=== PATIENT | male | born 1960 | race Caucasian/White ===

== ENCOUNTER 2023-02-10 10:33 | Inpatient (IN) | payer MEDICAID, OTHER ==
[~2023-02-10] VITALS: Ht 172.7 cm; Wt 86.3 kg
[~2023-02-10 10:33] MED LIST: NORPTMEDS CO
[2023-02-10] MEDS ORDERED: cloNIDine HCL 0.1 MG TAB PO ONE (11:00)
[2023-02-10 11:15] LABS: Base Excess 7.4 mmol/L (-2.0-2.0)
[2023-02-10 11:27] VITALS: PULSE 91; RESP 28; O2SAT 91
[2023-02-10 11:41] LABS: Basophils # (auto) 0.1 10 ^3/uL (0-0.2); Basophils % (auto) 0.6 % (0.0-2.0); Eosinophils # (auto) 0.3 10 ^3/uL (0-0.8); Hematocrit 43.8 % (41.0-53.0); Lymphocytes # (auto) 1.2 10 ^3/uL (0.4-5.4); Lymphocytes % (auto) 8.5 % (10.0-50.0); Mean Corpuscular Hemoglobin 27.8 pg (28.0-32.0); Mean Corpuscular Volume 86.8 fL (80.0-100.0); Monocytes # (auto) 1.1 10 ^3/uL (0-1.3); Monocytes % (auto) 7.5 % (0.0-12.0); Neutrophils # (auto) 11.4 10 ^3/uL (1.6-8.6); Neutrophils % (auto) 81.4 % (37.0-80.0); Red Blood Cells 5.04 10^6/uL (4.5-5.90); Red Cell Distribution Width 15.1 % (11.8-14.3)
[2023-02-10 12:02] LABS: Potassium 4.1 mmol/L (3.5-5.1)
[2023-02-10 12:10] LABS: Albumin 3.3 g/dL (3.4-5.0); Bilirubin, Total 0.3 mg/dL (0.2-1.0); Calcium 8.9 mg/dL (8.5-10.1); Magnesium 2.8 mg/dL (1.6-2.6); Total Protein 7.1 g/dL (6.4-8.2)
[2023-02-10] MEDS ORDERED: FUROSEMIDE 40 MG/4 ML VIAL IV ONE (12:45)
[2023-02-10 12:49] LABS: COVID19 ANTIGEN SOFIA FIA NEGATIVE (NEGATIVE)
[2023-02-10] MEDS ORDERED: PIPERACILLIN-TAZOB 3.375GM 100 ML IV ONE (13:15)
[2023-02-10] MEDS ORDERED: hydrALAZINE HCL 20 MG/ML VL IV ONE (13:45)
[2023-02-10 14:03] LABS: INR 1.04 (0.9-1.15); Partial Thromboplastin Time 29.6 SEC (24.5-34.5); Prothrombin Time 10.9 sec (9.3-11.8)
[2023-02-10] MEDS ORDERED: HEPARIN DRIP/D5W 100UNITS/ML 250 ML IV SCH (14:30)
[2023-02-10] MEDS ORDERED: MORPHINE SULFATE INJ 2 MG/ml SYRG IV PRN (14:30)
[2023-02-10] MEDS ORDERED: ONDANSETRON HCL 4 MG/2 ML VIAL IV PRN (14:30)
[2023-02-10] MEDS ORDERED: FUROSEMIDE 20 MG/2 ML VIAL IV ONE (14:30)
[2023-02-10] MEDS ORDERED: DOCUSATE SOD 100 MG CAP PO PRN (14:30)
[2023-02-10] MEDS ORDERED: HEPARIN SODIUM (PORCINE) 5000 UNITS/ML 1ML VIAL IV ONE (14:30)
[2023-02-10 14:49] LABS: Urine Bacteria NONE SEEN /hpf (None Seen); Urine Blood Negative /uL (Negative); Urine Clarity Clear (Clear); Urine Color Yellow (Yellow); Urine Protein, UAD 1+ (Negative); Urine Specific Gravity 1.016 (1.001-1.035); Urine Urobilinogen Normal (Negative); Urine WBC <1 /hpf (0 - 3); Urine pH 5.5 (5.0-8.0)
[2023-02-10] MEDS: FUROSEMIDE 40 MG/4 ML VIAL IV SCH (18:01)
[2023-02-10 19:26] LABS: Base Excess 12.5 mmol/L (-2.0-2.0)
[2023-02-10 19:40] VITALS: PULSE 113; RESP 18; O2SAT 93
[2023-02-10 19:50] LABS: Amphetamine Screen, Urine POSITIVE (NEGATIVE); Barbiturate Scree,Urine NEGATIVE (NEGATIVE); Benzodiazephine Screen, Urine NEGATIVE (NEGATIVE); Cannabinoid Screen, Urine NEGATIVE (NEGATIVE); Cocaine Screen, Urine NEGATIVE (NEGATIVE); Opiate Scree,Urine NEGATIVE (NEGATIVE)
[2023-02-10 19:58] LABS: Phencyclidine Screen, Urine NEGATIVE (NEGATIVE)
[2023-02-10 20:02] LABS: Hematocrit 46.4 % (41.0-53.0)
[2023-02-10] MEDS: PIPERACILLIN-TAZOB 3.375GM 100 ML IV SCH (20:12)
[2023-02-10 20:26] LABS: Albumin 3.3 g/dL (3.4-5.0); Basophils # (auto) 0 10 ^3/uL (0-0.2); Basophils % (auto) 0.2 % (0.0-2.0); Calcium 8.7 mg/dL (8.5-10.1); Eosinophils # (auto) 0.1 10 ^3/uL (0-0.8); Eosinophils % (auto) 0.8 % (0.0-7.0); Hemoglobin 15.1 g/dL (13.5-17.5); Lymphocytes # (auto) 0.9 10 ^3/uL (0.4-5.4); Lymphocytes % (auto) 6.4 % (10.0-50.0); Mean Corpuscular Hemoglobin 28.1 pg (28.0-32.0); Mean Corpuscular Hgb Conc. 32.1 g/dL (32.0-36.0); Mean Corpuscular Volume 87.6 fL (80.0-100.0); Monocytes # (auto) 1.2 10 ^3/uL (0-1.3); Monocytes % (auto) 8.4 % (0.0-12.0); Neutrophils # (auto) 11.8 10 ^3/uL (1.6-8.6); Neutrophils % (auto) 84.2 % (37.0-80.0); Potassium 4.1 mmol/L (3.5-5.1); Red Blood Cells 5.37 10^6/uL (4.5-5.90); Red Cell Distribution Width 15.4 % (11.8-14.3)
[2023-02-10 20:30] LABS: BUN/Creatinine Ratio 15.6 (10.0-20.0); Bilirubin, Total 0.2 mg/dL (0.2-1.0)
[2023-02-10 20:35] LABS: INR 1.07 (0.9-1.15); Partial Thromboplastin Time 28.8 SEC (24.5-34.5); Prothrombin Time 11.2 sec (9.3-11.8)
[2023-02-10 20:49] VITALS: PULSE 107; O2SAT 95
[2023-02-10 21:17] LABS: Body Fluid pH 9
[2023-02-10 21:18] LABS: Body Fluid Polymorphonuclear 15 % (0-25); Body Fluid Red Blood Cells 30000 CUMM (0-2000); Body Fluid White Blood Cells 225 CUMM (0-200)
[2023-02-10 21:32] VITALS: PULSE 107; O2SAT 95
[2023-02-10 22:15] VITALS: PULSE 103; O2SAT 93
[2023-02-10 22:37] LABS: Base Excess 11.4 mmol/L (-2.0-2.0)
[2023-02-11] VITALS (9 sets, daily range): BP systolic 101–135; BP diastolic 53–85; PULSE 81–107; RESP 19–22; TEMP 97.7; O2SAT 94–98
[2023-02-11] MEDS: PIPERACILLIN-TAZOB 3.375GM 100 ML IV SCH ×4 (02:30→21:09)
[2023-02-11 05:34] LABS: Basophils # (auto) 0 10 ^3/uL (0-0.2); Basophils % (auto) 0.2 % (0.0-2.0); Eosinophils # (auto) 0.1 10 ^3/uL (0-0.8); Eosinophils % (auto) 1.2 % (0.0-7.0); Hematocrit 40.3 % (41.0-53.0); Hemoglobin 13.5 g/dL (13.5-17.5); Lymphocytes # (auto) 1.2 10 ^3/uL (0.4-5.4); Lymphocytes % (auto) 9.9 % (10.0-50.0); Mean Corpuscular Hemoglobin 28.9 pg (28.0-32.0); Mean Corpuscular Hgb Conc. 33.5 g/dL (32.0-36.0); Mean Corpuscular Volume 86.2 fL (80.0-100.0); Monocytes # (auto) 1.1 10 ^3/uL (0-1.3); Monocytes % (auto) 9.1 % (0.0-12.0); Neutrophils # (auto) 9.9 10 ^3/uL (1.6-8.6); Neutrophils % (auto) 79.6 % (37.0-80.0); Red Blood Cells 4.67 10^6/uL (4.5-5.90); Red Cell Distribution Width 15.6 % (11.8-14.3); White Blood Cell 12.4 10^3/uL (4.4-10.8)
[2023-02-11 06:05] LABS: Potassium 3.7 mmol/L (3.5-5.1)
[2023-02-11 06:13] LABS: Albumin 2.9 g/dL (3.4-5.0); BUN/Creatinine Ratio 22.2 (10.0-20.0); Bilirubin, Total 0.3 mg/dL (0.2-1.0); Calcium 8.2 mg/dL (8.5-10.1)
[2023-02-11] MEDS: FUROSEMIDE 40 MG/4 ML VIAL IV SCH ×2 (06:17→18:56)
[2023-02-11 08:19] LABS: Base Excess 13.7 mmol/L (-2.0-2.0)
[2023-02-11 16:00] LABS: Cholesterol 213 mg/dL (< 200); Triglycerides 190 mg/dL (< 150)
[2023-02-11 16:03] LABS: HDL Cholesterol 45 mg/dL (40-59); LDL Cholesterol 149 mg/dL (< 100)
[2023-02-12] VITALS (9 sets, daily range): BP systolic 130–165; BP diastolic 80–107; PULSE 86–112; RESP 16–20; TEMP 97.7–98.6; O2SAT 92–95
[2023-02-12] MEDS: PIPERACILLIN-TAZOB 3.375GM 100 ML IV SCH ×4 (02:16→20:46)
[2023-02-12] MEDS ORDERED: LOSA50TA46 PO (04:14)
[2023-02-12] MEDS ORDERED: ATOR40TA52 PO (04:14)
[2023-02-12] MEDS ORDERED: [UNRECOGNIZED DRUG - CODE] PO (04:14)
[2023-02-12] MEDS: FUROSEMIDE 40 MG/4 ML VIAL IV SCH ×2 (05:25→17:40)
[2023-02-12] MEDS ORDERED: [UNRECOGNIZED DRUG - OTHER] PO SCH (18:00)
[2023-02-13] VITALS (10 sets, daily range): BP systolic 131–154; BP diastolic 82–94; PULSE 96–109; RESP 18–20; TEMP 97.5–98.3; O2SAT 91–95
[2023-02-13] MEDS: PIPERACILLIN-TAZOB 3.375GM 100 ML IV SCH ×4 (01:52→20:51)
[2023-02-13 02:54] LABS: Base Excess 14.8 mmol/L (-2.0-2.0)
[2023-02-13] MEDS: LOSARTAN POTASSIUM 50 MG TAB PO SCH (03:09)
[2023-02-13] MEDS: FUROSEMIDE 40 MG/4 ML VIAL IV SCH ×2 (06:35→18:39)
[2023-02-13 06:36] LABS: Basophils # (auto) 0.1 10 ^3/uL (0-0.2); Basophils % (auto) 0.6 % (0.0-2.0); Eosinophils # (auto) 0.5 10 ^3/uL (0-0.8); Eosinophils % (auto) 3.9 % (0.0-7.0); Hematocrit 43.1 % (41.0-53.0); Lymphocytes # (auto) 1.8 10 ^3/uL (0.4-5.4); Lymphocytes % (auto) 12.7 % (10.0-50.0); Mean Corpuscular Hgb Conc. 32.3 g/dL (32.0-36.0); Mean Corpuscular Volume 86.6 fL (80.0-100.0); Monocytes # (auto) 1.3 10 ^3/uL (0-1.3); Monocytes % (auto) 9.2 % (0.0-12.0); Neutrophils # (auto) 10.2 10 ^3/uL (1.6-8.6); Neutrophils % (auto) 73.6 % (37.0-80.0); Nucleated Red Blood Cells % 0.1 %; Red Blood Cells 4.98 10^6/uL (4.5-5.90); Red Cell Distribution Width 15.3 % (11.8-14.3); White Blood Cell 13.8 10^3/uL (4.4-10.8)
[2023-02-13 06:56] LABS: Potassium 3.4 mmol/L (3.5-5.1)
[2023-02-13 07:03] LABS: Albumin 2.9 g/dL (3.4-5.0); BUN/Creatinine Ratio 17.4 (10.0-20.0); Bilirubin, Total 0.3 mg/dL (0.2-1.0); Calcium 8.2 mg/dL (8.5-10.1); Total Protein 7.6 g/dL (6.4-8.2)
[2023-02-13] MEDS ORDERED: ATORVASTATIN 20 MG TAB PO SCH ×2 (07:30→22:00)
[2023-02-13] MEDS ORDERED: POTASSIUM CHL 20 Meq TABLET PO ONE (08:45)
[2023-02-13] MEDS ORDERED: LOSARTAN POTASSIUM 50 MG TAB PO SCH (10:00)
[2023-02-13 10:34] LABS: Base Excess 15.2 mmol/L (-2.0-2.0)
[2023-02-13] MEDS: amLODIPine BESYLATE 5 MG TAB PO SCH (12:35)
[2023-02-13] MEDS: [UNRECOGNIZED DRUG - OTHER] PO SCH (18:40)
[2023-02-14] VITALS (9 sets, daily range): BP systolic 133–153; BP diastolic 84–99; PULSE 79–109; RESP 16–22; TEMP 98–98.5; O2SAT 90–98
[2023-02-14] MEDS: PIPERACILLIN-TAZOB 3.375GM 100 ML IV SCH ×2 (02:09→08:28)
[2023-02-14] MEDS: FUROSEMIDE 40 MG/4 ML VIAL IV SCH ×2 (05:27→18:00)
[2023-02-14] MEDS: LOSARTAN POTASSIUM 50 MG TAB PO SCH (08:28)
[2023-02-14] MEDS: amLODIPine BESYLATE 5 MG TAB PO SCH (08:29)
[2023-02-14 09:16] LABS: Potassium 3.7 mmol/L (3.5-5.1)
[2023-02-14 09:35] LABS: BUN/Creatinine Ratio 14.4 (10.0-20.0); Calcium 8.4 mg/dL (8.7-10.4)
[2023-02-14] MEDS ORDERED: AML5T PO (10:07)
[2023-02-14] MEDS ORDERED: FURO1TAB33 PO (10:07)
[2023-02-14] MEDS ORDERED: DEXTROSE (50%) 50ML SYRG IV PRN (10:15)
[2023-02-14] MEDS: InsuLIN REG 1unit/0.01ml Soln (100units/ml) SC SCH ×2 (11:21→16:19)
[2023-02-14] MEDS: ACCU-CHEK COMFORT CURVE STRIP VI SCH ×2 (11:23→16:19)
[2023-02-14 12:06] LABS: Protein, Body Fluid 3.2 g/dL (.)
[2023-02-14] MEDS ORDERED: METF-370 PO (15:55)
[2023-02-14] MEDS ORDERED: PIPERACILLIN-TAZOB 3.375GM 100 ML IV SCH (16:00)
[2023-02-14] MEDS: [UNRECOGNIZED DRUG - OTHER] PO SCH (18:00)
== END 2023-02-14 19:25 | disposition home or self-care (01) | DRG 133 ==
LOC: ER 10:33 → OVERFLOW 14:18 → TELE-CENTR 02-11 18:07
PROVIDERS: ADMIT Internal Medicine Pulmonary Disease
PROC: 5A09357 Assistance with Respiratory Ventilation, Less than 24 Consecutive Hours, Continuous Positive Airway Pressure (ICD-10-PCS; principal; 2023-02-10)
PROC: 0W9B3ZZ Drainage of Left Pleural Cavity, Percutaneous Approach (ICD-10-PCS; 2023-02-10)
PROC: 5A09357 Assistance with Respiratory Ventilation, Less than 24 Consecutive Hours, Continuous Positive Airway Pressure (ICD-10-PCS; 2023-02-13)
DX: J96.21 Acute and chronic respiratory failure with hypoxia (principal); I30.9 Acute pericarditis, unspecified; E87.4 Mixed disorder of acid-base balance; J91.8 Pleural effusion in other conditions classified elsewhere; E78.5 Hyperlipidemia, unspecified; I16.1 Hypertensive emergency; F15.19 Other stimulant abuse with unspecified stimulant-induced disorder; Z20.822 Contact with and (suspected) exposure to COVID-19; I11.0 Hypertensive heart disease with heart failure; I50.9 Heart failure, unspecified; G47.31 Primary central sleep apnea; Z92.21 Personal history of antineoplastic chemotherapy; C34.90 Malignant neoplasm of unspecified part of unspecified bronchus or lung
CPT/HCPCS: 36415; 36600; 71045; 71250; 76604; 76942; 80048; 80053; 80061; 80307; 81001; 82805; 82962; 83036; 83605; 83735; 83880; 83986; 84484; 85014; 85018; 85025; 85610; 85730; 86850; 86900; 86901; 87040; 87205; 87426; 89051; 93005; 93306; 94660; 96365; 96366; 96375; 99291; G0378; J1815; J2543

== ENCOUNTER 2023-05-12 17:32 | Inpatient (IN) | payer MEDICAID ==
[~2023-05-12] VITALS: Ht 170.2 cm; Wt 79.4 kg
[~2023-05-12 17:32] MED LIST changes: +AML5T PO; +ATOR40TA52 PO; +FURO1TAB33 PO; +LOSA50TA46 PO; +METF-370 PO; -NORPTMEDS CO; +[UNRECOGNIZED DRUG - CODE] PO
[2023-05-12 18:15] VITALS: PULSE 106; RESP 19; O2SAT 94
[2023-05-12] MEDS ORDERED: SODIUM CHLORIDE 0.9% 1,000 ML IV ONE ×2 (18:30→19:30)
[2023-05-12] MEDS ORDERED: PIPERACILLIN-TAZO 4.5GM 100 ML IV ONE (18:30)
[2023-05-12] MEDS ORDERED: VANCOMYCIN 1GM/250ML 250 ML IV ONE (18:30)
[2023-05-12] MEDS ORDERED: FUROSEMIDE 40 MG/4 ML VIAL IV ONE (18:45)
[2023-05-12 18:50] LABS: Base Excess 2.8 mmol/L (-2.0-2.0)
[2023-05-12 18:57] LABS: Eosinophils # (auto) 0.4 10 ^3/uL (0-0.8); Lymphocytes % (auto) 11.8 % (10.0-50.0)
[2023-05-12 18:58] LABS: Basophils # (auto) 0 10 ^3/uL (0-0.2); Basophils % (auto) 0.4 % (0.0-2.0); Eosinophils % (auto) 4.2 % (0.0-7.0); Hematocrit 39.7 % (41.0-53.0); Hemoglobin 12.8 g/dL (13.5-17.5); Lymphocytes # (auto) 1.2 10 ^3/uL (0.4-5.4); Mean Corpuscular Hemoglobin 27.3 pg (28.0-32.0); Mean Corpuscular Hgb Conc. 32.2 g/dL (32.0-36.0); Monocytes # (auto) 0.8 10 ^3/uL (0-1.3); Neutrophils % (auto) 75.6 % (37.0-80.0); Red Blood Cells 4.67 10^6/uL (4.5-5.90); Red Cell Distribution Width 15.9 % (11.8-14.3); White Blood Cell 10.5 10^3/uL (4.4-10.8)
[2023-05-12 19:10] LABS: INR 1.09 (0.9-1.15); Prothrombin Time 11.4 sec (9.3-11.8)
[2023-05-12 19:16] LABS: Alanine Aminotransferase 11 U/L (7-40); Albumin 4.3 g/dL (3.2-4.8); Alkaline Phosphatase 71 U/L (46-116); Anion Gap 6 (5-15); Aspartate Aminotransferase 12 U/L (13-40); BUN/Creatinine Ratio 17.2 (10.0-20.0); Bilirubin, Total 0.2 mg/dL (0.2-1.0); Blood Urea Nitrogen 15 mg/dL (9-23); Carbon Dioxide 32 mmol/L (20-30); Chloride 106 mmol/L (98-107); Glucose 151 mg/dL (74-106); Potassium 3.7 mmol/L (3.5-5.1); Sodium 144 mmol/L (136-145); Total Protein 7.3 g/dL (5.7-8.2)
[2023-05-12 19:30] VITALS: PULSE 108; RESP 22; O2SAT 94
[2023-05-12] MEDS ORDERED: CIPROFLOXACIN 400MG/200ML 200 ML IV ONE (19:30)
[2023-05-12] MEDS ORDERED: ASPirin-EC 81 mg tab PO ONE (20:15)
[2023-05-12] MEDS ORDERED: NITROGLYCERIN 2% OINT 1GM PKG TD ONE (20:15)
[2023-05-12] MEDS ORDERED: METOPROLOL TARTRATE 1MG/1ML-5ML VIAL IV ONE (21:45)
[2023-05-12] MEDS ORDERED: ONDANSETRON HCL 4 MG/2 ML VIAL IV PRN (22:15)
[2023-05-12] MEDS ORDERED: DEXTROSE (50%) 50ML SYRG IV PRN (22:15)
[2023-05-12] MEDS ORDERED: hydrALAZINE HCL 20 MG/ML VL IV PRN (22:15)
[2023-05-12] MEDS ORDERED: HYDROcodone-ACET 5/325MG TAB PO PRN (22:15)
[2023-05-12] MEDS ORDERED: ACETAMINOPHEN 325 MG TAB PO PRN (22:15)
[2023-05-12] MEDS ORDERED: DOCUSATE SOD 100 MG CAP PO PRN (22:15)
[2023-05-12] MEDS ORDERED: NITROGLYCERIN 0.4 MG SL TAB SL PRN (23:30)
[2023-05-12] MEDS ORDERED: MORPHINE SULFATE INJ 2 MG/ml SYRG IV PRN (23:30)
[2023-05-13] MEDS ORDERED: MORPHINE SULFATE INJ 2 MG/ml SYRG IV PRN (05:00)
[2023-05-13] MEDS ORDERED: SODIUM CHLOR 0.9% PF (SALINE LOCK) 10ML VIAL/SYR IV SCH (06:00)
[2023-05-13 06:36] LABS: Basophils # (auto) 0.1 10 ^3/uL (0-0.2); Basophils % (auto) 0.5 % (0.0-2.0); Eosinophils # (auto) 0.5 10 ^3/uL (0-0.8); Eosinophils % (auto) 3.7 % (0.0-7.0); Hematocrit 39.7 % (41.0-53.0); Hemoglobin 12.9 g/dL (13.5-17.5); Lymphocytes # (auto) 1.7 10 ^3/uL (0.4-5.4); Lymphocytes % (auto) 13.4 % (10.0-50.0); Mean Corpuscular Hemoglobin 27.5 pg (28.0-32.0); Mean Corpuscular Hgb Conc. 32.4 g/dL (32.0-36.0); Mean Corpuscular Volume 84.6 fL (80.0-100.0); Monocytes # (auto) 1.3 10 ^3/uL (0-1.3); Neutrophils # (auto) 9.3 10 ^3/uL (1.6-8.6); Neutrophils % (auto) 72.4 % (37.0-80.0); Red Blood Cells 4.69 10^6/uL (4.5-5.90); Red Cell Distribution Width 16.2 % (11.8-14.3); White Blood Cell 12.9 10^3/uL (4.4-10.8)
[2023-05-13] MEDS ORDERED: InsuLIN REG 1unit/0.01ml Soln (100units/ml) SC SCH ×2 (07:00→22:00)
[2023-05-13] MEDS ORDERED: ACCU-CHEK COMFORT CURVE STRIP VI SCH (07:00)
[2023-05-13 07:09] LABS: Alanine Aminotransferase 13 U/L (7-40); Anion Gap 7 (5-15); Calcium 8.9 mg/dL (8.5-10.1); Carbon Dioxide 32 mmol/L (20-30); Chloride 104 mmol/L (98-107); Glucose 128 mg/dL (74-106); Potassium 3.8 mmol/L (3.5-5.1); Sodium 143 mmol/L (136-145)
[2023-05-13 07:10] LABS: Aspartate Aminotransferase 11 U/L (13-40); Blood Urea Nitrogen 17 mg/dL (9-23)
[2023-05-13 07:11] LABS: Albumin 4.4 g/dL (3.2-4.8)
[2023-05-13 07:12] LABS: Bilirubin, Total 0.2 mg/dL (0.2-1.0); Total Protein 7.3 g/dL (5.7-8.2)
[2023-05-13 07:35] VITALS: PULSE 106; RESP 26; O2SAT 93
[2023-05-13 07:57] VITALS: BP 141/95; RESP 26; TEMP 97.2; O2SAT 93
[2023-05-13 08:00] VITALS: PULSE 103
[2023-05-13] MEDS ORDERED: ASPirin 81 mg TAB PO SCH (10:00)
[2023-05-13] MEDS ORDERED: CARVEDILOL 12.5 MG TAB PO SCH (10:00)
[2023-05-13] MEDS ORDERED: FUROSEMIDE 40 MG/4 ML VIAL IV SCH (10:00)
[2023-05-13] MEDS ORDERED: AZITHROMYCIN 500MG/ 250ML 250 ML IV SCH (10:00)
[2023-05-13 10:49] LABS: Alkaline Phosphatase 72 U/L (46-116)
[2023-05-13] MEDS ORDERED: ATORVASTATIN 20 MG TAB PO SCH (22:00)
== END 2023-05-13 11:38 | disposition left against medical advice (07) | DRG 720 ==
LOC: ER 17:32 → EDBD 17:32 → EDUNIT# 17:32 → TELE 23:22
PROVIDERS: ADMIT Nurse Practitioner Family; ATTEND Nurse Practitioner Family
DX: A41.9 Sepsis, unspecified organism (principal); J18.9 Pneumonia, unspecified organism; I11.0 Hypertensive heart disease with heart failure; J90 Pleural effusion, not elsewhere classified; I50.32 Chronic diastolic (congestive) heart failure; E11.9 Type 2 diabetes mellitus without complications; Z53.29 Procedure and treatment not carried out because of patient's decision for other reasons; E78.5 Hyperlipidemia, unspecified; I16.0 Hypertensive urgency; Z85.118 Personal history of other malignant neoplasm of bronchus and lung; Z88.8 Allergy status to other drugs, medicaments and biological substances
CPT/HCPCS: 36415; 36600; 71045; 80053; 82805; 82962; 83605; 83735; 83880; 84484; 85025; 85610; 87040; 93005; 96365; 96366; 96375; 99291; G0378; J2405; J2543

== ENCOUNTER 2023-05-13 16:11 | Inpatient (IN) | payer MEDICAID ==
[~2023-05-13] VITALS: Ht 167.6 cm; Wt 77.2 kg
[2023-05-13 17:10] LABS: Basophils # (auto) 0 10 ^3/uL (0-0.2); Eosinophils # (auto) 0.3 10 ^3/uL (0-0.8); Hemoglobin 13.7 g/dL (13.5-17.5); Lymphocytes # (auto) 1.1 10 ^3/uL (0.4-5.4); Monocytes # (auto) 1.1 10 ^3/uL (0-1.3); Monocytes % (auto) 8.7 % (0.0-12.0); White Blood Cell 12.5 10^3/uL (4.4-10.8)
[2023-05-13 17:12] LABS: Basophils % (auto) 0.1 % (0.0-2.0); Eosinophils % (auto) 2.1 % (0.0-7.0); Lymphocytes % (auto) 8.4 % (10.0-50.0); Mean Corpuscular Hemoglobin 27.3 pg (28.0-32.0); Mean Corpuscular Hgb Conc. 31.8 g/dL (32.0-36.0); Mean Corpuscular Volume 85.9 fL (80.0-100.0); Neutrophils # (auto) 10.1 10 ^3/uL (1.6-8.6); Neutrophils % (auto) 80.7 % (37.0-80.0); Red Blood Cells 5.01 10^6/uL (4.5-5.90); Red Cell Distribution Width 16.2 % (11.8-14.3)
[2023-05-13 17:26] LABS: Alanine Aminotransferase 11 U/L (7-40); Albumin 4.7 g/dL (3.2-4.8); Alkaline Phosphatase 78 U/L (46-116); Anion Gap 5 (5-15); Aspartate Aminotransferase 12 U/L (13-40); BUN/Creatinine Ratio 18.3 (10.0-20.0); Blood Urea Nitrogen 15 mg/dL (9-23); Calcium 9.1 mg/dL (8.7-10.4); Carbon Dioxide 34 mmol/L (20-30); Chloride 101 mmol/L (98-107); Glucose 137 mg/dL (74-106); Potassium 4.4 mmol/L (3.5-5.1); Sodium 140 mmol/L (136-145)
[2023-05-13 17:27] LABS: Bilirubin, Total 0.3 mg/dL (0.2-1.0); Total Protein 7.9 g/dL (5.7-8.2)
[2023-05-13 18:30] VITALS: PULSE 126; RESP 26; O2SAT 95
[2023-05-13] MEDS ORDERED: SODIUM CHLORIDE 0.9% 1,000 ML IV ONE (18:30)
[2023-05-13 19:28] LABS: INR 1.13 (0.9-1.15); Partial Thromboplastin Time 30.1 SEC (24.5-34.5); Prothrombin Time 11.8 sec (9.3-11.8)
[2023-05-13 20:05] VITALS: PULSE 123; RESP 27; O2SAT 92
[2023-05-13] MEDS ORDERED: SPIRONOLACTONE 25 MG TAB PO ONE (20:15)
[2023-05-13] MEDS ORDERED: NITROGLYCERIN 0.4MG/HR TOPICAL PATCH TD ONE (20:15)
[2023-05-13] MEDS ORDERED: MORPHINE SULFATE 4 MG/ML SYR/VIAL IV ONE (20:15)
[2023-05-13] MEDS ORDERED: FUROSEMIDE 40 MG/4 ML VIAL IV ONE (20:15)
[2023-05-13] MEDS ORDERED: ONDANSETRON HCL 4 MG/2 ML VIAL IV ONE (21:30)
[2023-05-13] MEDS ORDERED: ONDANSETRON HCL 4 MG/2 ML VIAL IV PRN (22:00)
[2023-05-13] MEDS ORDERED: DOCUSATE SOD 100 MG CAP PO PRN (22:00)
[2023-05-13] MEDS ORDERED: ALBUTEROL MEDNEB 2.5 mg/3ml NEB NEB PRN (22:00)
[2023-05-13] MEDS ORDERED: DEXTROSE (50%) 50ML SYRG IV PRN (22:00)
[2023-05-13] MEDS ORDERED: IPRATROPIUM BROM 0.5 MG/2.5ML INH SOL NEB PRN (22:00)
[2023-05-13] MEDS ORDERED: HYDROcodone-ACET 5/325MG TAB PO PRN (22:00)
[2023-05-13] MEDS ORDERED: ACETAMINOPHEN 325 MG TAB PO PRN (22:00)
[2023-05-13] MEDS: ATORVASTATIN 20 MG TAB PO SCH (23:04)
[2023-05-13] MEDS: methylPREDNISolone SOD SUCC 40 MG/ML VL IV SCH (23:04)
[2023-05-13] MEDS: SODIUM CHLOR 0.9% PF (SALINE LOCK) 10ML VIAL/SYR IV SCH (23:05)
[2023-05-13] MEDS ORDERED: MORPHINE SULFATE INJ 2 MG/ml SYRG IV PRN (23:15)
[2023-05-13] MEDS ORDERED: NITROGLYCERIN 0.4 MG SL TAB SL PRN (23:15)
[2023-05-13] MEDS ORDERED: cefTRIAXone 1GM/50ML D5W 50 ML IV ONE (23:15)
[2023-05-14] VITALS (12 sets, daily range): BP systolic 105–137; BP diastolic 63–89; PULSE 101–121; RESP 21–27; TEMP 99.2; O2SAT 92–99
[2023-05-14] MEDS: ACCU-CHEK COMFORT CURVE STRIP VI SCH ×5 (00:48→23:53)
[2023-05-14] MEDS: InsuLIN REG 1unit/0.01ml Soln (100units/ml) SC SCH ×5 (00:49→23:53)
[2023-05-14] MEDS ORDERED: NALOXONE HCL 1MG/ML 2ML SYRINGE ONE (02:22)
[2023-05-14] MEDS ORDERED: NALOXONE HCL 1MG/ML 2ML SYRINGE IV ONE ×3 (02:30→02:45)
[2023-05-14] MEDS ORDERED: NALOXONE HCL 0.4 MG/ML VIAL ONE ×2 (02:33→02:36)
[2023-05-14 03:24] LABS: Base Excess 8.1 mmol/L (-2.0-2.0)
[2023-05-14] MEDS: SODIUM CHLOR 0.9% PF (SALINE LOCK) 10ML VIAL/SYR IV SCH ×3 (06:22→23:28)
[2023-05-14] MEDS: methylPREDNISolone SOD SUCC 40 MG/ML VL IV SCH ×3 (06:22→23:27)
[2023-05-14 06:25] LABS: Basophils # (auto) 0 10 ^3/uL (0-0.2); Basophils % (auto) 0.1 % (0.0-2.0); Eosinophils # (auto) 0 10 ^3/uL (0-0.8); Eosinophils % (auto) 0.1 % (0.0-7.0); Hematocrit 40.9 % (41.0-53.0); Lymphocytes # (auto) 0.4 10 ^3/uL (0.4-5.4); Lymphocytes % (auto) 3.1 % (10.0-50.0); Mean Corpuscular Hemoglobin 27.7 pg (28.0-32.0); Mean Corpuscular Hgb Conc. 31.7 g/dL (32.0-36.0); Mean Corpuscular Volume 87.4 fL (80.0-100.0); Monocytes # (auto) 0.4 10 ^3/uL (0-1.3); Monocytes % (auto) 3.2 % (0.0-12.0); Neutrophils # (auto) 13.3 10 ^3/uL (1.6-8.6); Neutrophils % (auto) 93.5 % (37.0-80.0); Red Blood Cells 4.68 10^6/uL (4.5-5.90); Red Cell Distribution Width 16.1 % (11.8-14.3); White Blood Cell 14.2 10^3/uL (4.4-10.8)
[2023-05-14 06:38] LABS: Alanine Aminotransferase 11 U/L (7-40); Alkaline Phosphatase 74 U/L (46-116); Blood Urea Nitrogen 19 mg/dL (9-23); Calcium 8.9 mg/dL (8.7-10.4); Carbon Dioxide 36 mmol/L (20-30); Glucose 144 mg/dL (74-106)
[2023-05-14 06:39] LABS: Albumin 4.4 g/dL (3.2-4.8); Aspartate Aminotransferase 9 U/L (13-40); Bilirubin, Total 0.2 mg/dL (0.2-1.0)
[2023-05-14 06:40] LABS: Total Protein 7.5 g/dL (5.7-8.2)
[2023-05-14 06:43] LABS: Anion Gap 4 (5-15); Chloride 100 mmol/L (98-107); Potassium 4.5 mmol/L (3.5-5.1); Sodium 140 mmol/L (136-145)
[2023-05-14 07:41] LABS: Base Excess 2.4 mmol/L (-2.0-2.0)
[2023-05-14] MEDS ORDERED: cefTRIAXone 1GM/50ML D5W 50 ML IV SCH (09:00)
[2023-05-14] MEDS: amLODIPine BESYLATE 5 MG TAB PO SCH (10:00)
[2023-05-14] MEDS: FUROSEMIDE 40 MG/4 ML VIAL IV SCH (10:54)
[2023-05-14 11:30] LABS: Urine Bacteria FEW /hpf (None Seen); Urine Blood Negative /uL (Negative); Urine Clarity Clear (Clear); Urine Color Yellow (Yellow); Urine Hyaline Cast FEW /lpf (0 - 2); Urine Protein, UAD 2+ (Negative); Urine Urobilinogen Normal (Negative); Urine WBC 5 /hpf (0 - 3); Urine pH 5.5 (5.0-8.0)
[2023-05-14 16:13] LABS: Base Excess 5.5 mmol/L (-2.0-2.0)
[2023-05-14] MEDS: ATORVASTATIN 20 MG TAB PO SCH (23:27)
[2023-05-15] MEDS: SODIUM CHLOR 0.9% PF (SALINE LOCK) 10ML VIAL/SYR IV SCH ×2 (06:23→15:46)
[2023-05-15] MEDS: ACCU-CHEK COMFORT CURVE STRIP VI SCH ×3 (06:24→18:18)
[2023-05-15] MEDS: InsuLIN REG 1unit/0.01ml Soln (100units/ml) SC SCH ×3 (06:24→18:18)
[2023-05-15] MEDS: methylPREDNISolone SOD SUCC 40 MG/ML VL IV SCH ×2 (06:24→14:00)
[2023-05-15 07:30] VITALS: PULSE 104; RESP 28; TEMP 97.8
[2023-05-15 08:35] VITALS: O2SAT 94
[2023-05-15] MEDS ORDERED: AZITHROMYCIN 500MG/ 250ML 250 ML IV SCH (10:00)
[2023-05-15] MEDS ORDERED: VANCOMYCIN PER PHARMACY 0 MG IV SCH (11:45)
[2023-05-15] MEDS ORDERED: CEFEPIME 2GM/50ML NS 50 ML IV ONE (11:45)
[2023-05-15] MEDS ORDERED: hydrALAZINE HCL 20 MG/ML VL IV PRN (12:15)
[2023-05-15] MEDS: FUROSEMIDE 40 MG/4 ML VIAL IV SCH (12:18)
[2023-05-15] MEDS: amLODIPine BESYLATE 5 MG TAB PO SCH (12:19)
[2023-05-15] MEDS ORDERED: VANCOMYCIN 1GM/250ML 250 ML IV ONE (13:00)
[2023-05-15 15:34] LABS: Body Fluid Red Blood Cells 440 CUMM (0-2000); Body Fluid White Blood Cells 193 CUMM (0-200); Body Fluid pH 8
[2023-05-15 15:47] LABS: Body Fluid Polymorphonuclear 12 % (0-25)
[2023-05-15 18:43] VITALS: BP 153/102
[2023-05-15 19:35] VITALS: PULSE 104; RESP 20; O2SAT 96
[2023-05-15 20:00] VITALS: PULSE 107
[2023-05-15] MEDS ORDERED: CEFEPIME 2GM/50ML NS 50 ML IV SCH (20:00)
[2023-05-16] MEDS ORDERED: VANCOMYCIN 1GM/250ML 250 ML IV SCH (08:00)
[2023-05-16 13:06] LABS: Protein, Body Fluid 4.3 g/dL (.)
== END 2023-05-15 20:16 | disposition left against medical advice (07) | DRG 136 ==
LOC: EDBD 16:11 → ER 16:11 → TELE 23:14
PROVIDERS: ADMIT Nurse Practitioner Family; ATTEND Internal Medicine Pulmonary Disease
PROC: 0W9B3ZZ Drainage of Left Pleural Cavity, Percutaneous Approach (ICD-10-PCS; 2023-05-13)
PROC: 5A09357 Assistance with Respiratory Ventilation, Less than 24 Consecutive Hours, Continuous Positive Airway Pressure (ICD-10-PCS; principal; 2023-05-14)
DX: C34.92 Malignant neoplasm of unspecified part of left bronchus or lung (principal); J96.01 Acute respiratory failure with hypoxia; I50.33 Acute on chronic diastolic (congestive) heart failure; I31.39 Other pericardial effusion (noninflammatory); E87.29 Other acidosis; J96.02 Acute respiratory failure with hypercapnia; J18.9 Pneumonia, unspecified organism; I11.0 Hypertensive heart disease with heart failure; J91.8 Pleural effusion in other conditions classified elsewhere; E11.9 Type 2 diabetes mellitus without complications; Z53.29 Procedure and treatment not carried out because of patient's decision for other reasons; E78.5 Hyperlipidemia, unspecified; F12.10 Cannabis abuse, uncomplicated; Z83.3 Family history of diabetes mellitus
CPT/HCPCS: 36415; 36600; 71045; 71250; 76604; 76942; 80053; 81001; 82805; 82962; 83735; 83986; 84443; 84484; 85025; 85610; 85730; 87070; 87205; 89051; 93005; 94660; 99291; G0378; J0692; J0696; J1815; J2405